=== PATIENT | female | born 1990 | race Caucasian/White ===

== ENCOUNTER 2021-10-02 00:33 | Day surgery (SDC) | payer OTHER, MEDICAID, SELFPAY ==
[2021-09-25 12:49] VITALS: BMI 43.8
[2021-10-02] VITALS (7 sets, daily range): BP systolic 108–140; BP diastolic 61–88; PULSE 74–87; RESP 16–20; TEMP 36–36.7; O2SAT 99–100
--- NOTE | 2021-10-02 08:55 | WPDHPUPDATE1 ---
History and Physical Update Update Date/Time: 10/02/21 08:55 History and Physical has been reviewed, including an updated exam of the patient. There are NO changes in the patient's condition. Risks, benefits, and alternatives have been discussed and questions answered. Patient agrees to proceed with procedure.
[2021-10-02] MEDS: LACTATED RINGERS 1,000 ML 30 ML IV CONT ×2 (09:00→11:20)
[2021-10-02] MEDS: ACETAMINOPHEN 500 MG TABLET 1000 MG PO (09:04)
[2021-10-02] MEDS: KETOROLAC 15 MG/ML VIAL (*BKC) IV PUSH (09:04)
--- NOTE | 2021-10-02 09:05 | WPDANESEPPF ---
Anes - Initial Pre Proc Eval Procedure: Operation Date: 10/02/21 10:30 Proposed Procedures p Laparoscopic Bilateral Salpingectomy, Left Oophorectomy, Hysteroscopy, Dilatation and Curettage, Sendy Endometrial Ablation - Jensen Tyler MD Date/Time: 10/02/21 09:05 Surgeon: Jensen Tyler MD Pre Op Diagnosis: Cyst Lt Ovary, Menorhagia Patient Data Age: 31 Gender: F Height: 1.7 m Weight: 127 kg Allergies Allergy/AdvReac Type Severity Reaction Status Date / Time Sulfa (Sulfonamide Allergy Mild Hives Verified 09/25/21 12:48 Antibiotics) Home Medications Medication Instructions Recorded Confirmed Type No Home Medications 09/25/21 09/25/21 History Patient hx anesthesia problems: none Family hx anesthesia problems: none Results Review: All pre-operative results and documents have been reviewed as part of the pre-operative evaluation. [facility] Social History Social History Smoking packs per day: 0.5 Smoking cigarettes per day: 10.0 Years smoked: 3 Smoking pack-years: 1.50 Smoking status: Current every day smoker Tobacco type: cigarettes Alcohol intake: current Alcohol use details: RARE Substance use: never Substance use type: does not use Living arrangements: with family Spiritual care concerns: No Anes - Eval Final PreProcedure Day of Procedure 10/02/21 09:05 Patient weight: morbidly obese Heart: regular rate and rhythm Lungs: clear to auscultation Airway: Mallampati scale class II Neurological: alert and oriented ASA classification: III Anesthetic plan: proceed Anesthesia type and monitoring: general ETT and standard monitoring Results Review: All pre-operative results and documents have been reviewed as part of the pre-operative evaluation. Informed Consent: The patient's anesthetic plan and its attendant risks and benefits were discussed with the patient/family/POA. Questions were solicited and answers provided to the satisfaction of the patient/family/POA.
--- NOTE | 2021-10-02 11:14 | W.PM.PROC2 ---
Procedure Note - Detailed Date of Procedure 10/02/21 Pre-op Diagnosis Cyst Lt Ovary, Menorhagia Post-op Diagnosis same Procedure Performed Laparoscopic bilateral salpingectomy, left oophorectomy, repair of uterine perforation with endometrial ablation and hysteroscopy,. Surgeon Jensen Tyler MD Anesthesia general Indications Menorrhagia, female sterilization Findings Boggy enlarged uterus with possible fibroids. Cystic left ovary. Possible endometriosis in the deep posterior cul-de-sac. Normal-appearing tubes. Description of Procedure Patient was taken the operating room. She has prepped draped in the dorsal lithotomy position after induction of general anesthesia. A 5 mm abdominal incision was made in left upper quadrant of the abdomen with scalpel. A 5 mm trocars inserted the intra-abdominal cavity under direct visualization of the scope. Pneumoperitoneum was achieved. A 5 mm periumbilical incision was made using a scalpel on the abdominal scan. A 5 mm trocar was inserted the intra-abdominal cavity under visualization of the scope. A 5 mm incision made left lower quadrant of the abdomen. A 5 mm trocar was inserted the intra-abdominal cavity and direct visualization of the scope. The bilateral fallopian tubes were removed. The paratubal tissue in the area of the uterus was grasped with the LigaSure cautery and transected after being cauterized. The paratubal tissue from the ovary to the uterine cornu was cauterized and transected with LigaSure cautery. This was all done in a bilateral fashion. The tube was transected at the area of the uterine cornua and the tubes was removed through the 5 mm trocar site.The left ovary was removed after identification of the left ureter. The infundibulopelvic ligament was cauterized and transected with LigaSure cautery. The para ovarian tissue was cauterized transected with LigaSure cautery. The ovary was taken out through an endobag at the left lower quadrant trocar site. Later after uterine perforation the laparoscopy was resumed. A running V lock suture was placed along the left cornua where the perforation was noted. It was a V lock 2-0 suture. The endometrial ablation was observed laparoscopically in real-time. When that was completed the laparoscopic portion the procedure was concluded. The pneumoperitoneum was reduced. The trocars were removed. The skin was closed with subcuticular 4 Monocryl and covered with Dermabond The endometrial ablation portion of the procedure performed as follows. A speculum was placed in the vagina. The cervix was grasped with a tenaculum. The cervix was dilated to approximately 8 mm with Hanna dilators. The hysteroscope was inserted. And the below findings were noted. All of the intrauterine surfaces were curettaged with a medium-size curette and the specimens were collected. during this portion of the procedure perforation was noted. It was examined with the hysteroscope and found to be posterior. laparoscopic be was resumed and as described above. A suture was used to Close the perforation. Then the ablation was resumed. Measurements of the cervix were taken using the uterine sound and the hysteroscope. The intrauterine cavity measurements were entered into the handpiece. The device was inserted into the intrauterine cavity and the array was expanded. The balloon cuff was inflated. When an adequate seal was formed the safety and energy cycles were initiated and completed. The array was collapsed, the balloon was deflated. The insert was withdrawn. The hysteroscope was reinserted and a well desiccated intrauterine cavity was observed. The patient was taken recovery room stable condition. Sponge lap and needle counts were correct x2. She tolerated the procedure well. Estimated Blood Loss 50 Pathology yes Complications Other complications ( Uterine perforation that was closed with this suture.) Condition stable Disposition PACU
[2021-10-02] MEDS: fentaNYL CITRATE INJ (*CRX) 100 MCG/2 ML VIAL 25 MCG IV PUSH ×2 (11:31→11:42)
[2021-10-02] MEDS: oxyCODONE HCL (*CRX) 5 MG TAB IR PO (12:23)
[2021-10-02] MEDS: ONDANSETRON INJ 4 MG/2 ML VIAL IV PUSH (12:55)
== END 2021-10-02 13:10 | disposition home or self-care (01) ==
PROVIDERS: PCP Pediatrics; Visit Provider Obstetrics & Gynecology
PROC: 0UDB8ZZ Extraction of Endometrium, Via Natural or Artificial Opening Endoscopic (ICD-10-PCS; CPT 58558; principal; 2021-10-02 10:30)
DX: Z30.2 Encounter for sterilization (principal); N92.0 Excessive and frequent menstruation with regular cycle; N83.202 Unspecified ovarian cyst, left side; Y65.8 Other specified misadventures during surgical and medical care; N73.6 Female pelvic peritoneal adhesions (postinfective); N80.2 Endometriosis of fallopian tube; F17.210 Nicotine dependence, cigarettes, uncomplicated; E66.01 Morbid (severe) obesity due to excess calories; Z68.41 Body mass index [BMI] 40.0-44.9, adult; Z79.51 Long term (current) use of inhaled steroids; R10.2 Pelvic and perineal pain
CPT/HCPCS: 58563; 58661; 88305; A9270; J0690; J1100; J1885; J2250; J2270; J2405; J2704; J2710; J3010; J7030; J7120

== ENCOUNTER 2024-05-10 11:13 | Outpatient (CLI) | payer OTHER, SELFPAY | END 2024-05-10 11:14 | disposition home or self-care (01) | PROVIDERS: PCP Pediatrics; Visit Provider Obstetrics & Gynecology | DX: N92.0 Excessive and frequent menstruation with regular cycle (principal); Z01.818 Encounter for other preprocedural examination | CPT/HCPCS: 36415; 86850; 86900; 86901 ==

== ENCOUNTER 2024-05-11 03:26 | Day surgery (SDC) | payer OTHER, SELFPAY ==
--- NOTE | 2024-04-29 18:09 | PC.NURSE ---
Report to the Outpatient Waiting Room, entrance under the green pavilion located off [facility], at time 0600 on date 05/11/24. Planned Procedure Time: 0730. Time changes happen often and if your time is changed the preop area will call you the afternoon before. - You and your visitor will be asked to self-screen and do not enter if you have any COVID symptoms. - A mask is optional within the hospital at this time. Patients may have clear liquids (water, carbonated beverages, clear teas, apple juice) until 3 hours prior to surgery with a maximum of 20 ounces. 0430 - No food from midnight until time of surgery - Infants may have breast milk until 4 hours before surgery, formula 6 hours prior to surgery. - Children will be allowed to drink immediately following surgery. If applicable, please bring a bottle or sippy cup to assist with drinking. Juice, water, soda, and popsicles are readily available. For infants on formula, please bring formula the day of surgery. Pacifiers are allowed. Take the following medications with a SIP of water the morning of surgery: NONE DO NOT STOP ANY OF YOUR OTHER PRESCRIPTION MEDICATIONS PRIOR TO SURGERY ?EXCEPT THE FOLLOWING Medications to discontinue per physician VITAMINS AND SUPPLEMENTS, MELOXICAM- ASK DR. MAXWELL REGARDING STOP DATE Date to take last dose 05/08/24 FOR VITAMINS AND SUPPLEMENTS Please no make-up, nail estonian, hairspray, perfume, deodorant, or body powder the day of surgery. No jewelry (including any body piercings) or valuables the day of surgery, leave them at home. Please take a shower or bath the night before, or the morning of, surgery with an antibacterial soap. Wear comfortable, loose fitting clothing. Children are encouraged to wear pajamas. - Jewelry must be removed prior to entering the operating room. Rings and piercings that are not removed may be cut off. - The hospital will not accept responsibility for valuables. - Please leave all valuables, including medications, at home the day of surgery. If you are going home after surgery, a licensed student truck driver must drive you home. - NO public transportation without another adult if you receive anesthesia. - We recommend that an adult stay with you for 24 hours following discharge. - We also recommend that you do not drive, make important decision, drink alcoholic beverages, or take any drugs that were not prescribed by your health care provider for at least 24 hours after your discharge time. For Pediatric surgeries, we recommend two adults accompany the child home. Follow any additional instructions given to you from your surgeon. If you or anyone in your household have experienced Covid symptoms in the past week, please notify your surgeon or the nurse liaison at the phone number below for possible testing. Telephone instructions given to PATIENT- WENDY ESCOBAR and asked if any additional questions and then verbalized understanding. Patient advised to call surgeon office or pre surgery nurse liaison [phone] if any additional questions.
[2024-04-29 18:17] VITALS: BMI 35.1
[2024-05-11] VITALS (11 sets, daily range): BP systolic 117–147; BP diastolic 64–90; PULSE 64–92; RESP 16–21; TEMP 36.4–36.8; O2SAT 92–100
[2024-05-11] MEDS: ACETAMINOPHEN 500 MG TABLET 1000 MG PO (06:19)
[2024-05-11] MEDS: LACTATED RINGERS 1,000 ML 30 ML IV CONT ×2 (06:53→09:45)
--- NOTE | 2024-05-11 07:02 | P.PNAN_ITS ---
Anes - Initial Pre Proc Eval Procedure: Operation Date: 05/11/24 07:30 Proposed Procedures p Total Laparoscopic Hysterectomy - Nikhil Tyler MD Date/Time: 05/11/24 07:02 Surgeon: Nikhil Tyler MD Pre Op Diagnosis: Menorrhagia Patient Data Age: 33 Gender: F Height: 1.7 m Weight: 101.8 kg Allergies Allergy/AdvReac Type Severity Reaction Status Date / Time Sulfa (Sulfonamide Allergy Mild Hives Verified 05/11/24 06:10 Antibiotics) Home Medications Medication Instructions Recorded Confirmed Type duloxetine 60 mg capsule,delayed 60 mg PO HS 04/29/24 05/11/24 History release (Cymbalta) meloxicam 15 mg tablet 15 mg PO HS 04/29/24 05/11/24 History phentermine 30 mg capsule 30 mg PO DAILY 04/29/24 05/11/24 History vitamin D3 125 mcg (5,000 1 cap PO DAILY 04/29/24 05/11/24 History unit)-vitamin K2 180 mcg capsule Patient hx anesthesia problems: post op nausea/vomiting Family hx anesthesia problems: none Results Review: All pre-operative results and documents have been reviewed as part of the pre- operative evaluation. [facility] Social History Social History (Updated 04/29/24 @ 18:21 by Tiffany Altamirano RN) Smoking packs per day: 0.5 Smoking cigarettes per day: 10.0 Years smoked: 3 Smoking pack-years: 1.50 Smoking status: Former smoker Tobacco type: cigarettes Alcohol intake: current Alcohol use details: RARE Substance use: current Substance use type: marijuana Other substance usage details: every day user, at night mostly Living arrangements: with family Spiritual care concerns: No Anes - Eval Final PreProcedure Day of Procedure 05/11/24 07:02 Patient weight: obese Heart: regular rate and rhythm Lungs: clear to auscultation Airway: Mallampati scale class II Neurological: alert and oriented Last oral intake: >/= 8 hours ASA classification: III Emergent: no Anesthetic plan: proceed Anesthesia type and monitoring: general ETT and standard monitoring Results Review: All pre-operative results and documents have been reviewed as part of the pre- operative evaluation. Informed Consent: The patient's anesthetic plan and its attendant risks and benefits were discussed with the patient/family/POA. Questions were solicited and answers provided to the satisfaction of the patient/family/POA.
[2024-05-11] MEDS: SCOPOLAMINE 1 MG PATCH 1 PATCH TRANSDERM (07:07)
--- NOTE | 2024-05-11 07:14 | WPDHPUPDATE1 ---
History and Physical Update Update Date/Time: 05/11/24 07:14 History and Physical has been reviewed, including an updated exam of the patient. There are NO changes in the patient's condition. Risks, benefits, and alternatives have been discussed and questions answered. Patient agrees to proceed with procedure.
[2024-05-11] MEDS: KETOROLAC 15 MG/ML VIAL (*BKC) IV PUSH (07:15)
[2024-05-11] MEDS: ceFAZolin 2 GM/D5W 50 ML 2 GM/50 ML BAG IVPB (07:36)
[2024-05-11] MEDS: ceFAZolin SODIUM 1 GM VIAL (08:23)
--- NOTE | 2024-05-11 09:35 | W.PM.PROC2 ---
Procedure Note - Detailed Date of Procedure 05/11/24 Pre-op Diagnosis Menorrhagia Post-op Diagnosis Same Procedure Performed total laparoscopic hysterectomy Surgeon Nikhil Tyler MD Anesthesia General Indications heavy vaginal bleeding Findings Mildly enlarged uterus, normal-appearing right ovary, absent fallopian tube Description of Procedure This patient was taken to the operating room. She was prepped and draped in the dorsal lithotomy position after induction of general anesthesia. The uterine manipulator and Delicia cup were placed. This was done with a speculum and tenaculum. The speculum was placed. The cervix was grasped with a tenaculum. The stay sutures were placed at 3 and 9:00 a.m.. The stay sutures of 0 Vicryl were brought through the appropriately sized Delicia cup. The tip of the JUJU manipulator was placed in the intrauterine cavity. The cup was slid into place around the cervix and into the fornices. It was locked into place. The sutures were then wrapped around the handle and tied under tension. A 5 mm skin incision was made in the left upper quadrant the abdomen. A 5 mm trocar was inserted into the intrauterine cavity under direct visualization of the scope. Pneumoperitoneum was achieved. A left lower quadrant 11 mm incision was made with scalpel. An 11 mm trocar was inserted into the anterior abdominal cavity under direct visualization the scope. A 5 mm infraumbilical incision was made with a scalpel and a 5 mm trocar was inserted the intra-abdominal cavity under direct visualization of the scope. Bilateral ureteral lysis was performed. This was done from the pelvic brim down to the uterine artery. This was done with careful dissection using sharp and blunt dissection. In a stepwise fashion along the lateral aspects of the uterus the Suspensory ligament of the ovary, round ligament and broad ligaments were cauterized transected down to the level of the uterine arteries. A bladder flap was created in the bladder was moved distally to the end of the cervix and over the Delicia cup. The bilateral uterine arteries were cauterized and transected. Colpotomy was then performed. In a circumferential fashion the vagina was transected using unipolar cautery. The incision was made down on the Delicia cup. when the colpotomy was completed, the uterus and cervix were taken out through the vagina. A pneumo occluder was placed in the vagina. The vaginal cuff was closed with a 0 V lock suture in a running fashion. The pelvis was irrigated with copious amounts antibiotic irrigation. The ureters were again examined and found to be intact and flowing freely under the uterine arteries into the bladder. The bladder was intact. It was examined directly. Cystoscopy was performed after administration of methylene blue. The cystoscope was inserted. Bladder was distended with fluid. The ureteric meatus was observed bilaterally. Blue fluid was seen to egress bilaterally. The bladder was drained and the cystoscope was withdrawn. The vagina was irrigated with Betadine solution after removal of the Pneumo occluder. The patient was taken to recovery room. She was stable condition. Sponge lap and needle counts were correct x2. Estimated Blood Loss 75 Drains No Packing No Pathology Yes Complications No immediate complications Condition Stable Disposition PACU
[2024-05-11] MEDS: ONDANSETRON INJ 4 MG/2 ML VIAL IV PUSH (10:21)
[2024-05-11] MEDS: fentaNYL CITRATE INJ (*CRX) 100 MCG/2 ML VIAL 25 MCG IV PUSH (10:27)
--- NOTE | 2024-05-11 11:00 | PC.NURSE ---
This patient, Ashely Turner, was received from PACU on 05/11/24 at 1100. Patient/family oriented to unit policies and routines
[2024-05-11] MEDS: KETOROLAC 30 MG/ML VIAL (*BKC) IV PUSH (11:41)
[2024-05-11] MEDS: DEXTROSE 5%/0.45% SOD CHL 1,000 ML 125 ML IV CONT (11:41)
[2024-05-11] MEDS: HYDROmorphone HCL INJ (*CRX) 1 MG/ML SYR IV PUSH (15:45)
[2024-05-11] MEDS: PROMETHAZINE HCL 25 MG/ML AMPUL 12.5 MG IV PUSH (15:49)
[2024-05-11] MEDS: SIMETHICONE 80 MG TAB.CHEW PO (18:29)
[2024-05-12 00:30] VITALS: BP 120/68; PULSE 70; RESP 14; TEMP 36.9; O2SAT 97
[2024-05-12] MEDS: IBUPROFEN 600 MG TABLET PO ×2 (01:24→08:41)
[2024-05-12] MEDS: HYDROcodone/acetaminophen (*CRX) 10-325 MG TABLET 1 TAB PO (01:24)
[2024-05-12] MEDS: HYDROmorphone HCL INJ (*CRX) 1 MG/ML SYR IV PUSH (02:43)
[2024-05-12 05:15] VITALS: BP 101/63; PULSE 68; RESP 16; TEMP 37; O2SAT 97
--- NOTE | 2024-05-12 07:46 | PM.OBPNVD ---
OB - PN: Subj Subjective Date/time seen: 05/12/24 07:46 OB - PN A/P Time Spent With Patient Time: Total time spent is greater than 50% in coordination of care (as documented) at patient's floor/unit and/or counseling patient: Time with patient: 15 - 25 minutes Exam Const: General: cooperative, healthy appearing, comfortable and no acute distress Resp: Auscultation: no crackles, no rales, no rhonchi and no wheezes Cardio: Rhythm: regular rhythm Heart sounds: no click and no murmurs GI: Inspection: non-distended Auscultation: normal bowel sounds Other: Incisions - CDI Extrem: General: normal to inspection, no pedal edema and no calf tenderness
[2024-05-12 08:00] VITALS: BP 115/65; PULSE 75; RESP 16; TEMP 36.8; O2SAT 98
[2024-05-12] MEDS: SIMETHICONE 80 MG TAB.CHEW PO (08:42)
== END 2024-05-12 09:32 | disposition home or self-care (01) ==
LOC: ANHSURGERY 07:07 → ANHOB2 11:01
PROVIDERS: PCP Pediatrics; Visit Provider Obstetrics & Gynecology
PROC: 0UT9FZZ Resection of Uterus, Via Natural or Artificial Opening With Percutaneous Endoscopic Assistance (ICD-10-PCS; CPT 58571; principal; 2024-05-11 07:30)
DX: N92.0 Excessive and frequent menstruation with regular cycle (principal); Z87.891 Personal history of nicotine dependence; F12.90 Cannabis use, unspecified, uncomplicated; E66.9 Obesity, unspecified; Z68.36 Body mass index [BMI] 36.0-36.9, adult
CPT/HCPCS: 58571; 88307; 99199; A9270; J0690; J1100; J1170; J1200; J1885; J2250; J2405; J2550; J2704; J3010; J7030; J7120; Q9968

== ENCOUNTER 2024-05-15 12:15 | Emergency (ER) | payer OTHER, SELFPAY ==
--- NOTE | ~2024-05-15 | XR_ITS ---
XR chest 2V DATE: 05/15/2024 12:37 INDICATION: Blurred 2 degree fever after hysterectomy surgery 3 days ago TECHNIQUE: PA and lateral views COMPARISON: None FINDINGS: Normal heart size. No hilar or mediastinal enlargement. There is mild discoid atelectasis at the posterior right lung base, right lower lobe. Otherwise no pu lmonary infiltrate or consolidation, pleural effusion or pulmonary vascular congestion or pneumothora x. IMPRESSION: Mild discoid atelectasis at posterior right lung base, right lower lobe Reviewed, dictated and finalized at location A.
[2024-05-15 12:17] VITALS: BP 145/86; PULSE 98; RESP 16; TEMP 37.4; O2SAT 98
[2024-05-15] MEDS: SODIUM CHLORIDE 0.9% IV 1,000 ML 999 ML IV CONT (12:52)
[2024-05-15 13:09] LABS: Basophils Percent Auto 0.4 % (0.2-1.2); Eosinophils Absolute Auto 0.2 K/mm3 (0-0.3); Eosinophils Percent Auto 2.3 % (0-4.4); Hematocrit 36.1 % (37.0-47.0); Hemoglobin 12.4 g/dL (12.0-15.0); Immature Granulocyte Absolute 0.05 K/mm3 (0.00-0.031); Immature Granulocyte Percent A 0.5 % (0-0.5); Lymphocytes Absolute Auto 0.87 K/mm3 (0.9-3.2); Lymphocytes Percent Auto 9.4 % (18.3-44.2); Mean Corpuscular HGB Conc 34.3 g/dl (32-36); Mean Corpuscular Volume 87.4 fl (80-100); Mean Platelet Volume 11.9 fl (7.4-10.4); Monocytes Absolute Auto 1.2 K/mm3 (0.1-0.6); Monocytes Percent Auto 13.3 % (2.6-8.5); Neutrophils Absolute Auto 6.9 K/mm3 (1.3-6.7); Neutrophils Percent Auto 74.1 % (45.5-73.1); Platelet Count Result 290 k/mm3 (150-375); Red Blood Count 4.13 M/mm3 (4.2-5.4); Red Cell Distribution Width 13.4 % (11.5-14.5); White Blood Count 9.3 K/mm3 (4.5-10.0)
[2024-05-15 13:11] LABS: Appearance Urine Clear (Clear); Bilirubin Urine Negative (Negative); Blood Urine Negative (Negative); Color Urine Yellow (Yellow); Glucose Urine UA Negative (Negative); Ketones Urine Negative (Negative); Leukocyte Esterase Ur Negative LEU/UL (Negative); Nitrate Urine Negative (Negative); Protein Urine Negative (Negative)
[2024-05-15 13:21] LABS: Alanine Aminotransferase 48 U/L (6-35); Albumin Level 4.4 g/dL (3.5-5.1); Alkaline Phosphatase 64 U/L (38-126); Anion Gap 9 mmol/L (4-12); Aspartate Amino Transferase 34 U/L (14-36); Bilirubin,Total 1.8 mg/dL (0.2-1.3); Blood Urea Nitrogen 8 mg/dL (7-17); Calcium 9.1 mg/dL (8.4-10.2); Carbon Dioxide 27 mmol/L (22-30); Chloride 101 mmol/L (98-107); Estimated CRCL calculation 123 ml/min; Estimated Glomerular Filt Rate > 60; Glucose 102 mg/dL (65-110); Potassium 3.8 mmol/L (3.4-5.0); Sodium 137 mmol/L (137-145)
[2024-05-15 13:26] LABS: Specific Grav Ur 1.003 (1.001-1.035)
[2024-05-15 13:27] LABS: Add Urine Microscopic? NO
[2024-05-15 13:45] LABS: Influenza A QL RT-PCR Negative (Negative); Influenza B QL RT-PCR Negative (Negative); RSV RNA, RT-PCR Negative (Negative); SARS-CoV-2 RNA PCR Negative (Negative)
[2024-05-15 14:09] VITALS: BP 125/71; PULSE 85; RESP 18; TEMP 36.8; O2SAT 97
--- NOTE | 2024-05-15 14:26 | ED.FEVER ---
HPI - Fever General Chief Complaint: Fever Stated Complaint: fever Time Seen by Provider: 05/15/24 12:27 History of Present Illness HPI Narrative: Patient is a 33-year-old female who presents ER with fever. Began today. She is currently postop from a hysterectomy. No runny nose or sore throat or cough. No burning urination or frequent urination. Patient reports she was constipated and then took 6 stool softeners and had profound diarrhea yesterday but has not had any for 10 hours. Mild abdominal cramping. Related Data Home Medications Medication Instructions Recorded Confirmed duloxetine 60 mg capsule,delayed 60 mg PO HS 04/29/24 05/11/24 release (Cymbalta) meloxicam 15 mg tablet 15 mg PO HS 04/29/24 05/11/24 phentermine 30 mg capsule 30 mg PO DAILY 04/29/24 05/11/24 vitamin D3 125 mcg (5,000 1 cap PO DAILY 04/29/24 05/11/24 unit)-vitamin K2 180 mcg capsule Allergies Allergy/AdvReac Type Severity Reaction Status Date / Time Sulfa (Sulfonamide Allergy Mild Hives Verified 05/15/24 12:54 Antibiotics) Review of Systems Review of Systems: All systems reviewed & are unremarkable except as noted in HPI and below Constitutional: Constitutional: Denies chills, Denies fatigue and Reports fever(s) ENT: Reports system reviewed and no additional complaints, except as documented Cardiovascular: Cardiovascular: Reports no additional cardiovascular complaints Respiratory: Respiratory: Reports no additional respiratory complaints Gastrointestinal: Gastrointestinal: Denies abdominal pain, Reports constipation, Reports diarrhea, Denies nausea and Denies vomiting Genitourinary: Genitourinary: Reports no additional female genitourinary complaints [facility] Past Medical History Medical History (Updated 05/15/24 @ 14:43 by Tripp Saavedra MD) Healthy female adult Surgical History Surgical History (Updated 05/15/24 @ 14:43 by Tripp Saavedra MD) History of hysterectomy Social History Social History (Updated 04/29/24 @ 18:21 by Tiffany Altamirano RN) Smoking packs per day: 0.5 Smoking cigarettes per day: 10.0 Years smoked: 3 Smoking pack-years: 1.50 Smoking status: Former smoker Tobacco type: cigarettes Alcohol intake: current Alcohol use details: RARE Substance use: current Substance use type: marijuana Other substance usage details: every day user, at night mostly Living arrangements: with family Spiritual care concerns: No Exam Narrative: GENERAL: Well-appearing, well-nourished, and in no acute distress. HEAD: Normocephalic, atraumatic. ENT: Mucous membranes moist. NECK: Supple. CHEST: Clear to auscultation. No respiratory distress. HEART: Regular rate and rhythm. Normal peripheral pulses. ABDOMEN: Soft, nontender, nondistended. bruising around the umbilicus. EXTREMITIES: Normal range of motion. No edema. SKIN: Warm, dry, no rash. NEURO: Alert and oriented x3. PSYCH: Normal mood and affect. Course [employer] POLICY ANALYST/PA Physician Supervision Patient resting comfortably. Informed of results. Discussed case with Dr. Tyler. Discharge home With antibiotics, will treat for pneumonia given the atelectasis and fever.. Vital Signs Vital signs: Vital Signs Temperature 99.3 F 05/15/24 12:17 Pulse Rate 98 05/15/24 12:17 Respiratory Rate 16 05/15/24 12:17 Blood Pressure 145/86 H 05/15/24 12:17 Pulse Oximetry 98 05/15/24 12:17 Oxygen Delivery Room Air 05/15/24 12:17 Temperature 98.2 F 05/15/24 14:09 Pulse Rate 85 05/15/24 14:09 Respiratory Rate 18 05/15/24 14:09 Blood Pressure 125/71 05/15/24 14:09 Pulse Oximetry 97 05/15/24 14:09 Oxygen Delivery Room Air 05/15/24 12:17 MDM - Fever Lab Data 05/15/24 12:50 05/15/24 12:50 Labs: Lab Results 05/15/24 Range/Units 12:50 WBC 9.3 (4.5-10.0) K/mm3 RBC 4.13 L (4.2-5.4) M/mm3 Hgb 12.4 (12.0-15.0) g/dL Hct 36.1 L (37.0-47.0) % M
[2024-05-15 14:55] VITALS: RESP 18
== END 2024-05-15 14:58 | disposition home or self-care (01) ==
PROVIDERS: Emergency Provider Emergency Medicine; PCP Pediatrics
DX: J18.9 Pneumonia, unspecified organism (principal); Z98.890 Other specified postprocedural states; Z20.822 Contact with and (suspected) exposure to COVID-19; Z87.891 Personal history of nicotine dependence; Z90.710 Acquired absence of both cervix and uterus
CPT/HCPCS: 36415; 71046; 80053; 81001; 81003; 85025; 87637; 96360; 96361; 99283; J7030